=== PATIENT | female | born 1955 | race African-American/Black ===

== ENCOUNTER 2016-08-01 12:58 | Emergency (ER) | payer OTHER ==
[~2016-08-01] VITALS: Ht 160 cm; Wt 78.5 kg
--- NOTE | ~2016-08-01 | EKG ---
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: [id number] : 1955 Requested By: Remi Son Order Number: [id number] MD: Reilly Retana Measurements Intervals [place] Rate: 96 P: 29 SC: 151 QRS: -17 QRSD: 86 T: 53 QT: 285 QTc: 360 Interpretive Statements Sinus rhythm Nonspecific ST and T wave abnormality Compared to ECG 06/25/2016 01:21:44 ST (T wave) deviation now present Myocardial infarct finding no longer present Nonspecific change in T-wave abnormality Electronically Signed On 08-02-2016 14:20:07 BOTTLER by Reilly Retana [email or web address] <ELECTRONICALLY SIGNED> By: Reilly Retana MD, [facility] 08/02/16 1420 1349 1349 Reilly Retana MD, [facility] /EPI
[~2016-08-01 12:58] MED LIST: AMLODIPINE BESY10 MG PO; HYDROCHLOROTH12.5 M1 PO; OMEPRAZOLE40 MG PO
[2016-08-01 13:51] LABS: URINE BILIRUBIN NEGATIVE (Negative); URINE BLOOD 2+ (Negative); URINE COLOR YELLOW; URINE GLUCOSE-RANDOM* NEGATIVE (Negative); URINE KETONES NEGATIVE (Negative); URINE NITRITE NEGATIVE (Negative); URINE PROTEIN (DIPSTICK) NEGATIVE (Negative); URINE SPECIFIC GRAVITY >= 1.030 (1.003-1.035); URINE UROBILINOGEN 0.2 E.U./dl (0.2-1.0)
[2016-08-01 13:56] LABS: CASTS None Seen /LPF (None Seen); CRYSTALS None Seen /LPF (None Seen); SQUAMOUS >10 Many /LPF (0-3)
[2016-08-01 13:57] LABS: BACTERIA None Seen /HPF (None Seen); URINE RBC 3-10 Few /HPF (0-2); URINE WBC 0-5 Rare /HPF (0-5)
[2016-08-01] MEDS ORDERED: MOBIC7.5 MG PO (14:00)
[2016-08-01 14:15] LABS: ABSOLUTE NEUTROPHILS 5.7 thou/uL (1.4-8.2); BASOPHILS 0.2 % (0.0-2.0); EOSINOPHILS 0.8 % (0.0-3.0); HEMATOCRIT 39.8 % (37.0-47.0); HEMOGLOBIN 13.8 gm/dL (12.0-15.0); LYMPHOCYTES 5.4 % (24.0-44.0); MCH 31.8 pg (26.0-34.0); MCHC 34.5 % (28.0-37.0); MCV 92.2 fL (80.0-100.0); MONOCYTES 8.3 % (1.0-8.0); PLATELET COUNT 243 thou/uL (150-400); POLYS 85.3 % (36.0-66.0); RBC 4.32 mil/uL (4.20-5.00); RDW 13.7 % (10.5-14.5); WBC 6.7 thou/uL (4.0-11.0)
[2016-08-01 14:18] LABS: MANUAL DIFF NO
[2016-08-01 14:24] LABS: ANION GAP 9 mmol/L (7-16); BUN 11 mg/dL (7-18); CALCIUM 8.5 mg/dL (8.5-10.1); CHLORIDE 106 mmol/L (98-107); CO2 26 mmol/L (21-32); GLUCOSE 142 mg/dL (70-99); POTASSIUM 3.4 mmol/L (3.5-5.1); SODIUM 141 mmol/L (136-145)
[2016-08-01 14:30] LABS: ALBUMIN 3.6 g/dL (3.4-5.0); ALKALINE PHOSPHATASE 97 U/L (46-116); DIRECT BILIRUBIN < 0.1 mg/dL (<0.1-0.3); SGOT 20 U/L (15-37); SGPT 31 U/L (30-65); TOTAL BILIRUBIN 0.3 mg/dL (<0.1-1.0); TOTAL PROTEIN 7.2 g/dL (6.4-8.2)
[2016-08-01] MEDS ORDERED: VENTOLIN HFA 1818 GM INH (16:16)
[2016-08-01] MEDS ORDERED: ZPAK PO (16:16)
[2016-08-01] MEDS ORDERED: PREDNISONE 20 M20 MG PO (16:16)
[2016-08-01] MEDS ORDERED: TESSALON PERLE100 MG PO (16:28)
[2016-08-01 16:56] VITALS: BP 138/84
== END 2016-08-01 16:57 | disposition home or self-care (01) ==
LOC: ER 12:58
PROVIDERS: Nurse Practitioner
DX: J44.1 Chronic obstructive pulmonary disease with (acute) exacerbation (principal); J18.9 Pneumonia, unspecified organism; I10 Essential (primary) hypertension; F17.210 Nicotine dependence, cigarettes, uncomplicated; F10.99 Alcohol use, unspecified with unspecified alcohol-induced disorder

== ENCOUNTER 2016-08-12 23:42 | Inpatient (IN) | payer OTHER ==
[~2016-08-12] VITALS: Ht 162.6 cm; Wt 78.0 kg
--- NOTE | ~2016-08-12 | HC ---
[facility] [place] [address] CONSULTATION Name: FERRERPIPO Luiz Room #: 243-P [facility] IN M.R.#: [id number] Admission: 08/13/16 Attend Phys: Fabio Sun DO Discharge: Date of : 53 Report #: [id number] THIS REPORT FOR: //name// CC: RAMAN physician/PCP Fabio Sun DATE OF SERVICE: 08/13/2016 REASON FOR CONSULTATION: Chest pain. HISTORY OF PRESENT ILLNESS: This is a very pleasant 60-year-old female patient without prior history of coronary artery disease, was admitted through the Emergency Room for chest discomfort. The patient states this discomfort is at rest. It is sharp and stabbing and it comes and waves. She has had episodes for the last 5 or 6 months where it comes for a while and it disappears for a month or so, then comes back for a while. These are not exertional in nature. They occur at rest. They are worse by inspiration, by movement, by coughing. They are not worsened by activity or exertion. She denies any abdominal discomfort, back discomfort, but noticed it over the last several days. She has had "slimy" stools. She does have a daughter who has a clotting issue but apparently it was secondary to the use of control pills and smoking. Upon further questioning, she has not had any significant exertional chest pain, pressure, tightness, or heaviness. She does have acid reflux and hypertension but states that these symptoms are a bit different than what she normally would have from that. No dependent or nondependent edema. No palpitations. PAST MEDICAL HISTORY: Significant for hypertension. ALLERGIES: No known drug allergies. MEDICATIONS: Ventolin MDI, prednisone, Z-Bobby, Tessalon Perles, hydrochlorothiazide, omeprazole, and amlodipine. She had been on meloxicam also. SOCIAL HISTORY: The patient smokes. Consumes alcohol socially. Does not follow particular exercise regimen or dietary restriction. ELECTROCARDIOGRAM: Demonstrates normal sinus rhythm, nonspecific ST-T wave changes. LABORATORY DATA: Demonstrates a potassium of 2.9, which has been corrected. BUN and creatinine are 19 and 0.9. BNP 70. CPK not abnormal. H and H is 12.8 and 37.9 with normal indices. Platelet count is 272,000. RADIOLOGIC: Chest x-ray demonstrates some atelectasis in the base, but no acute processes. CT scan demonstrates possibility of old splenic infarcts and a 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 REVIEW OF SYSTEMS: Except for the symptoms as previously mentioned and those commensurate with the comorbid state, the 10-point review of system is negative. PHYSICAL EXAMINATION: GENERAL: Show well-developed, well-nourished female resting comfortably in no acute distress. VITAL SIGNS: Present and noted in the chart. HEENT: Normocephalic, atraumatic. Pupils are equal, round, reactive to light and accommodation. Extraocular muscles are intact. Sclerae and conjunctivae are anicteric. NECK: JVD is normal. Carotid upstrokes are bilaterally symmetrical. No bruits are heard. No thyromegaly. No lymphadenopathy. LUNGS: Clear to auscultation. No wheezes, rhonchi or crackles. No CVA tenderness. CARDIAC: Demonstrates a regular rhythm. Normal first and second heart sounds. No ventricular or atrial gallops, no rubs noted. No murmurs. No lifts or heaves, PMI normal. ABDOMEN: Demonstrates some epigastric tenderness and some xiphoid process tenderness noted. Soft, nondistended. Normal bowel sounds. EXTREMITIES: Without cyanosis, clubbing or edema. Distal pulses are intact. DTR symmetrical. NEUROLOGIC: Cranial nerves 2-12 are grossly normal and symmetrical. PSYCHIATRIC: Alert, oriented with normal affect. SKIN: Warm and dry. IMPRESSION: 1. Atypical chest discomfort which is clearly reproducible with palpation, movement. This is noncardiac in origin. I do not think we need to proceed this any further. 2. 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 I am going to initiate protein S, protein C lupus anticoagulant, anticardiolipin blood draw so that when hematology sees ____ they have already been run. We need to exclude hypercoagulability for all the reasons need to be pursued more progressively. 3. Hypertension, seems to be adequately controlled. I would restart her medications at the present time, so that we can have those fully controlled. <ELECTRONICALLY SIGNED> By: Iván Brian MD 08/14/16 1154 1820 0103 Iván Brian MD /nt
--- NOTE | ~2016-08-12 | EKG ---
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: MZOOLinnette : 1955 Requested By: Johnathan Mcginnis Order Number: [id number] MD: Satinder De Jesus Measurements Intervals [place] Rate: 96 P: 55 [place]: 151 QRS: -32 QRSD: 85 T: 29 QT: 390 QTc: 493 Interpretive Statements Sinus rhythm Probable left atrial enlargement Left axis deviation Abnormal R-wave progression, early transition Borderline prolonged QT interval Compared to ECG 08/01/2016 13:49:54 Left-axis deviation now present ST (T wave) deviation no longer present Electronically Signed On 08-13-2016 8:07:23 [employer] by Satinder De Jesus [email or web address] <ELECTRONICALLY SIGNED> By: Satinder De Jesus MD 08/13/16 0807 2344 2344 Satinder De Jesus MD /EPI
[~2016-08-12 23:42] MED LIST changes: +MOBIC7.5 MG PO; +PREDNISONE 20 M20 MG PO; +TESSALON PERLE100 MG PO; +VENTOLIN HFA 1818 GM INH; +ZPAK PO
[2016-08-12 23:43] VITALS: BP 145/76
[2016-08-13 01:07] LABS: ANION GAP 10 mmol/L (7-16); BUN 19 mg/dL (7-18); CALCIUM 8.4 mg/dL (8.5-10.1); CHLORIDE 102 mmol/L (98-107); CO2 30 mmol/L (21-32); CREATININE 0.9 mg/dL (0.6-1.3); GLUCOSE 190 mg/dL (70-99); SODIUM 142 mmol/L (136-145)
[2016-08-13 01:09] LABS: HEMATOCRIT 37.9 % (37.0-47.0); HEMOGLOBIN 12.8 gm/dL (12.0-15.0); MCH 31.7 pg (26.0-34.0); MCHC 33.7 % (28.0-37.0); MCV 94.1 fL (80.0-100.0); PLATELET COUNT 272 thou/uL (150-400); POTASSIUM 2.9 mmol/L (3.5-5.1); RBC 4.03 mil/uL (4.20-5.00); RDW 13.8 % (10.5-14.5); WBC 9.1 thou/uL (4.0-11.0)
[2016-08-13 01:10] LABS: MANUAL DIFF YES
[2016-08-13 01:11] LABS: APTT 21.6 Seconds (24.5-32.8); PROTIME 9.3 Seconds (9.3-11.4)
[2016-08-13 01:31] LABS: ALBUMIN 3.2 g/dL (3.4-5.0); ALKALINE PHOSPHATASE 103 U/L (46-116); CK-MB MASS 0.6 ng/mL (<0.5-3.6); MAGNESIUM 2.2 mg/dL (1.8-2.4); NT-PRO BRAIN NAT PEPTIDE 70 pg/mL (<300); SGOT 36 U/L (15-37); SGPT 55 U/L (30-65); TOTAL BILIRUBIN 0.3 mg/dL (<0.1-1.0); TOTAL PROTEIN 6.8 g/dL (6.4-8.2); TROPONIN-I < 0.04 ng/mL (<0.04-0.07)
[2016-08-13 01:34] LABS: ABSOLUTE NEUTROPHILS 5.3 thou/uL (1.4-8.2); TOTAL CELL COUNT 100
[2016-08-13 02:01] LABS: URINE BILIRUBIN NEGATIVE (Negative); URINE BLOOD TRACE (Negative); URINE COLOR YELLOW; URINE GLUCOSE-RANDOM* NEGATIVE (Negative); URINE KETONES NEGATIVE (Negative); URINE LEUKOCYTES-REFLEX NEGATIVE (Negative); URINE PROTEIN (DIPSTICK) NEGATIVE (Negative); URINE SPECIFIC GRAVITY 1.015 (1.003-1.035); URINE UROBILINOGEN 0.2 E.U./dl (0.2-1.0)
[2016-08-13 08:00] VITALS: BP 123/74
[2016-08-13 12:01] VITALS: BP 123/75
[2016-08-13 13:07] LABS: HEMATOCRIT 38.3 % (37.0-47.0); HEMOGLOBIN 12.7 gm/dL (12.0-15.0); MCH 31.2 pg (26.0-34.0); MCHC 33.2 % (28.0-37.0); MCV 94.1 fL (80.0-100.0); RBC 4.07 mil/uL (4.20-5.00); WBC 8.6 thou/uL (4.0-11.0)
[2016-08-13 16:00] VITALS: BP 112/65
[2016-08-13 20:00] VITALS: BP 111/71
[2016-08-13] MEDS ORDERED: TESSALON PERLE100 M1 PO (20:03)
[2016-08-13] MEDS ORDERED: MOBIC7.5 MG PO (20:03)
[2016-08-13] MEDS ORDERED: ZPAK PO (20:04)
[2016-08-13] MEDS ORDERED: PREDNISONE 20 M20 MG PO (20:05)
[2016-08-14 00:09] VITALS: BP 138/84
[2016-08-14 01:02] LABS: CALCIUM 7.8 mg/dL (8.5-10.1); CREATININE 0.8 mg/dL (0.6-1.3); POTASSIUM 3.2 mmol/L (3.5-5.1)
[2016-08-14 04:00] VITALS: BP 104/62
[2016-08-14 08:02] VITALS: BP 125/78
[2016-08-14 11:55] VITALS: BP 133/84
[2016-08-14 16:07] VITALS: BP 132/70
[2016-08-14 20:00] VITALS: BP 142/91
[2016-08-15 04:00] VITALS: BP 126/74
[2016-08-15 04:23] LABS: ABSOLUTE NEUTROPHILS 5.7 thou/uL (1.4-8.2); BASOPHILS 0.4 % (0.0-2.0); EOSINOPHILS 1.3 % (0.0-3.0); HEMATOCRIT 35.5 % (37.0-47.0); HEMOGLOBIN 12.2 gm/dL (12.0-15.0); LYMPHOCYTES 26.4 % (24.0-44.0); MCH 32.8 pg (26.0-34.0); MCHC 34.4 % (28.0-37.0); MCV 95.3 fL (80.0-100.0); MONOCYTES 9.9 % (1.0-8.0); PLATELET COUNT 274 thou/uL (150-400); RBC 3.72 mil/uL (4.20-5.00); WBC 9.2 thou/uL (4.0-11.0)
[2016-08-15 04:35] LABS: MANUAL DIFF NO
[2016-08-15 04:36] LABS: CALCIUM 7.9 mg/dL (8.5-10.1); CREATININE 0.8 mg/dL (0.6-1.3); POTASSIUM 3.5 mmol/L (3.5-5.1)
[2016-08-15 07:49] VITALS: BP 146/79
[2016-08-15 12:00] VITALS: BP 144/91
[2016-08-15 15:22] VITALS: BP 144/66
[2016-08-15 21:12] VITALS: BP 142/82
[2016-08-16 03:40] VITALS: BP 133/73
[2016-08-16 06:11] LABS: HEMATOCRIT 35.1 % (37.0-47.0); HEMOGLOBIN 11.9 gm/dL (12.0-15.0); MCH 31.7 pg (26.0-34.0); MCV 93.4 fL (80.0-100.0); RBC 3.76 mil/uL (4.20-5.00); RDW 13.9 % (10.5-14.5)
[2016-08-16 06:18] LABS: CALCIUM 8.7 mg/dL (8.5-10.1); CREATININE 0.8 mg/dL (0.6-1.3); POTASSIUM 4.2 mmol/L (3.5-5.1)
[2016-08-16 08:23] VITALS: BP 165/85
[2016-08-16 12:06] LABS: FACTOR VIII-AHF 247 % (57-163)
[2016-08-16 13:11] VITALS: BP 139/65
[2016-08-16] MEDS ORDERED: PRADAXA150 MG PO (13:21)
[2016-08-16] MEDS ORDERED: PERCOCET PO (13:22)
[2016-08-16] MEDS ORDERED: LEVAQUIN 500 M500 M2 PO (13:23)
[2016-08-16 14:55] VITALS: BP 139/65
[2016-08-17 13:10] LABS: DIL. RUSSELL VIPER VENOM 38.1 sec (0.0-44.0)
[2016-08-17 16:08] LABS: BETA-2 GLYCOPROTEIN IGG < 9 (0-20); BETA-2 GLYCOPROTEIN IGM < 9 (0-32)
== END 2016-08-16 16:08 | disposition home or self-care (01) | DRG 299 ==
LOC: ER 23:42 → ICU 08-13 02:45 → EROBS 08-13 02:45 → ICU 08-13 03:10 → 3N 08-14 13:01
PROVIDERS: Emergency Medicine; Family Medicine; Hospitalist; Internal Medicine; Internal Medicine Hematology & Oncology; Nurse Practitioner; Radiology Diagnostic Radiology
DX: I75.89 Atheroembolism of other site (principal); J18.9 Pneumonia, unspecified organism; B88.0 Other acariasis; I10 Essential (primary) hypertension; K59.00 Constipation, unspecified; K21.9 Gastro-esophageal reflux disease without esophagitis
CPT/HCPCS: 10096; 10203

== ENCOUNTER 2016-12-19 08:41 | Emergency (ER) | payer OTHER ==
[~2016-12-19] VITALS: Ht 160 cm; Wt 73.0 kg
--- NOTE | ~2016-12-19 | EKG ---
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: baylee snowden : 1955 Requested By: Shruti Gasca Order Number: [id number] MD: Reilly Retana Measurements Intervals [place] Rate: 69 P: 60 [place]: 158 QRS: -19 QRSD: 92 T: 14 QT: 445 QTc: 477 Interpretive Statements Sinus rhythm Borderline left axis deviation Minimal ST elevation, anterior leads Compared to ECG 08/12/2016 23:44:49 No significant change was found Electronically Signed On 12-20-2016 13:57:40 CDT by Reilly Retaan [email or web address] <ELECTRONICALLY SIGNED> By: Reilly Retana MD, [facility] 12/20/16 1357 2 2 Reilly Retana MD, [facility] /EPI
[~2016-12-19 08:41] MED LIST changes: +LEVAQUIN 500 M500 M2 PO; +PERCOCET PO; +PRADAXA150 MG PO; +TESSALON PERLE100 M1 PO
[2016-12-19 08:59] LABS: ABSOLUTE NEUTROPHILS 2.3 thou/uL (1.4-8.2); BASOPHILS 0.8 % (0.0-2.0); HEMATOCRIT 42.2 % (37.0-47.0); HEMOGLOBIN 14.6 gm/dL (12.0-15.0); LYMPHOCYTES 42.5 % (24.0-44.0); MCH 32.5 pg (26.0-34.0); MCHC 34.7 g/dL (28.0-37.0); MCV 93.6 fL (80.0-100.0); PLATELET COUNT 261 thou/uL (150-400); POLYS 46.7 % (36.0-66.0); RDW 14.6 % (10.5-14.5)
[2016-12-19 09:06] LABS: MANUAL DIFF NO
[2016-12-19 09:07] LABS: ANION GAP 7 mmol/L (7-16); BUN 11 mg/dL (7-18); CALCIUM 8.6 mg/dL (8.5-10.1); CHLORIDE 108 mmol/L (98-107); CO2 25 mmol/L (21-32); CREATININE 0.7 mg/dL (0.6-1.0); GLUCOSE 123 mg/dL (74-106); POTASSIUM 3.3 mmol/L (3.5-5.1); SODIUM 140 mmol/L (136-145)
[2016-12-19 09:15] LABS: TROPONIN-I < 0.04 ng/mL (<0.04-0.07)
[2016-12-19] MEDS ORDERED: VALIUM2 MG PO (09:21)
[2016-12-19] MEDS ORDERED: NORCO 5-325 TA1 EACH PO (09:21)
== END 2016-12-19 10:20 ==
LOC: ER 08:41
PROVIDERS: Emergency Medicine
DX: M54.9 Dorsalgia, unspecified (principal); E87.6 Hypokalemia; R09.1 Pleurisy; I10 Essential (primary) hypertension; M19.90 Unspecified osteoarthritis, unspecified site; F17.210 Nicotine dependence, cigarettes, uncomplicated

== ENCOUNTER 2017-12-22 12:29 | Emergency (ER) | payer OTHER ==
[~2017-12-22] VITALS: Ht 160 cm; Wt 77.1 kg
[~2017-12-22 12:29] MED LIST changes: +NORCO 5-325 TA1 EACH PO; +VALIUM2 MG PO
[2017-12-22] MEDS ORDERED: NORCO 5-325 TA1 EACH PO (14:24)
[2017-12-22] MEDS ORDERED: FLEXERIL PO (14:24)
[2017-12-22] MEDS ORDERED: NAPROSYN500 MG PO (14:24)
[2017-12-22] MEDS ORDERED: SENNA-DOCUSATE1 EACH PO (14:25)
== END 2017-12-22 14:40 | disposition home or self-care (01) ==
LOC: ER 12:29
DX: S80.02XA Contusion of left knee, initial encounter (principal); S60.212A Contusion of left wrist, initial encounter; S60.211A Contusion of right wrist, initial encounter; S40.012A Contusion of left shoulder, initial encounter; S30.1XXA Contusion of abdominal wall, initial encounter; S10.83XA Contusion of other specified part of neck, initial encounter; I10 Essential (primary) hypertension; M19.90 Unspecified osteoarthritis, unspecified site; F17.210 Nicotine dependence, cigarettes, uncomplicated; W18.39XA Other fall on same level, initial encounter; Y93.89 Activity, other specified; Y92.89 Other specified places as the place of occurrence of the external cause; Y99.8 Other external cause status

== ENCOUNTER 2018-04-13 14:51 | Emergency (ER) | payer OTHER ==
[~2018-04-13] VITALS: Ht 160 cm; Wt 74.8 kg
[~2018-04-13 14:51] MED LIST changes: +FLEXERIL PO; +NAPROSYN500 MG PO; +SENNA-DOCUSATE1 EACH PO
[2018-04-13 15:42] LABS: HEMATOCRIT 40.9 % (37.0-47.0); HEMOGLOBIN 14.1 gm/dL (12.0-15.0); MCH 32.9 pg (26.0-34.0); MCHC 34.5 g/dL (28.0-37.0); MCV 95.4 fL (80.0-100.0); RBC 4.29 mil/uL (4.20-5.00); RDW 13.7 % (10.5-14.5); WBC 7.9 thou/uL (4.0-11.0)
[2018-04-13 15:50] LABS: CALCIUM 9.2 mg/dL (8.5-10.1); CREATININE 0.9 mg/dL (0.6-1.0); POTASSIUM 3.4 mmol/L (3.5-5.1)
[2018-04-13 15:56] LABS: ALBUMIN 3.5 g/dL (3.4-5.0); TOTAL BILIRUBIN 0.3 mg/dL (<0.1-1.0); TOTAL PROTEIN 7.3 g/dL (6.4-8.2)
[2018-04-13] MEDS ORDERED: PREDNISONE 20 M20 MG PO (16:32)
[2018-04-13] MEDS ORDERED: DOXYCYCLINE 10100 MG PO (16:32)
[2018-04-13] MEDS ORDERED: PROMETH-CODEIN 65 ML PO (16:35)
== END 2018-04-13 16:57 | disposition home or self-care (01) ==
LOC: ER 14:51
PROVIDERS: Physician Assistant
DX: J44.1 Chronic obstructive pulmonary disease with (acute) exacerbation (principal); Z71.6 Tobacco abuse counseling; F17.200 Nicotine dependence, unspecified, uncomplicated; I10 Essential (primary) hypertension; M19.90 Unspecified osteoarthritis, unspecified site; Z87.01 Personal history of pneumonia (recurrent); F17.210 Nicotine dependence, cigarettes, uncomplicated

== ENCOUNTER 2018-09-28 14:17 | Emergency (ER) | payer OTHER ==
[~2018-09-28] VITALS: Ht 162.6 cm; Wt 74.8 kg
[~2018-09-28 14:17] MED LIST changes: +DOXYCYCLINE 10100 MG PO; +PROMETH-CODEIN 65 ML PO
[2018-09-28 14:48] LABS: HEMATOCRIT 42.5 % (37.0-47.0); HEMOGLOBIN 14.7 gm/dL (12.0-15.0); MCH 32.9 pg (26.0-34.0); MCHC 34.4 g/dL (28.0-37.0); MCV 95.5 fL (80.0-100.0); RBC 4.46 mil/uL (4.20-5.00); RDW 14.2 % (10.5-14.5); WBC 9.3 thou/uL (4.0-11.0)
[2018-09-28 15:09] LABS: ANION GAP 14 mmol/L (7-16); BUN 12 mg/dL (7-18); CALCIUM 8.9 mg/dL (8.5-10.1); CHLORIDE 106 mmol/L (98-107); CO2 25 mmol/L (21-32); CREATININE 0.8 mg/dL (0.6-1.0); GLUCOSE 128 mg/dL (74-106); SODIUM 145 mmol/L (136-145)
[2018-09-28 15:18] LABS: TROPONIN-I <0.06 ng/mL (<0.06)
--- NOTE | 2018-09-28 15:21 | EKG ---
[place] [address] [facility] [place] [employer] [place] [address] ELECTROCARDIOGRAM REPORT Name: PIPO FERRER Room #: PRE [facility]#: [id number] ������������������ Admission: ������������������ Attend Phys: Discharge: ������������������ Date of : 53 Report #: [id number] ����������������������������������������������������������������� [id number] THIS REPORT FOR: //name// [facility] ED Test Date: 2018-09-28 Test Time: 15:11:11 Pat Name: PIPO FERRER Department: Room: Gender: F Manager [employer] Estate: DAWN : 1955 Requested By: Edwin Barnard Order Number: [id number] MD: Iván Brian Measurements Intervals [place] Rate: 68 P: 61 SD: 167 QRS: -16 QRSD: 101 T: 25 QT: 439 QTc: 467 Interpretive Statements Sinus rhythm left atrial enlargement Leftward axis Nonspecific ST/T wave changes Compared to ECG 12/19/2016 09:03:48 ST (T wave) deviation no longer present Electronically Signed On 09-28-2018 15:20:52 AUDIO VIDEO TECHNICIAN by Iván Brian [email or web address] ��������������������������������������������� <ELECTRONICALLY SIGNED> ���������������������������������������� By: Iván Brian MD ��������������������������������������������� 09/28/18 1520 10 10 Iván Brian MD /EPI
[2018-09-28 16:10] VITALS: BP 148/103
== END 2018-09-28 16:11 | disposition home or self-care (01) ==
LOC: ER 14:17
PROVIDERS: Emergency Medicine
DX: S61.411A Laceration without foreign body of right hand, initial encounter (principal); I10 Essential (primary) hypertension; M19.90 Unspecified osteoarthritis, unspecified site; F17.210 Nicotine dependence, cigarettes, uncomplicated; W01.110A Fall on same level from slipping, tripping and stumbling with subsequent striking against sharp glass, initial encounter; Y93.89 Activity, other specified; Y92.89 Other specified places as the place of occurrence of the external cause; Y99.8 Other external cause status

== ENCOUNTER → 2018-10-17 | Outpatient (CLI) | payer OTHER | END | disposition home or self-care (01) | LOC: RAD 09:13 | DX: S73.192A Other sprain of left hip, initial encounter (principal); M70.62 Trochanteric bursitis, left hip; M24.152 Other articular cartilage disorders, left hip; J44.1 Chronic obstructive pulmonary disease with (acute) exacerbation; F41.9 Anxiety disorder, unspecified; F17.200 Nicotine dependence, unspecified, uncomplicated; Z79.899 Other long term (current) drug therapy; Z98.890 Other specified postprocedural states; W19.XXXA Unspecified fall, initial encounter; Y93.89 Activity, other specified; Y92.89 Other specified places as the place of occurrence of the external cause; Y99.8 Other external cause status ==